=== PATIENT | female | born 1970 | race African-American/Black ===

== ENCOUNTER → 2016-10-09 | Outpatient (CLI) | payer OTHER | END | disposition home or self-care (01) | LOC: RAD 09:38 | PROVIDERS: ATTEND Family Medicine | DX: R07.9 Chest pain, unspecified (principal) | CPT/HCPCS: 71020 ==

== ENCOUNTER → 2017-02-19 | Outpatient (CLI) | payer SELFPAY ==
[~2017-02-19] MED LIST: REGADENOSON 0.4 MG/5 ML SYRINGE ONE
== END | disposition home or self-care (01) ==
LOC: CFH 10:28
PROVIDERS: ATTEND Internal Medicine Cardiovascular Disease
DX: Z02.9 Encounter for administrative examinations, unspecified (principal)
CPT/HCPCS: J2785

== ENCOUNTER 2017-05-11 07:32 | Day surgery (SDC) | payer OTHER ==
[~2017-05-11] VITALS: Ht 175.3 cm; Wt 80.0 kg
[2017-05-11 08:40] VITALS: BP 113/82
[2017-05-11] MEDS ORDERED: SODIUM CHLORIDE 0.9% 1,000 ML IV ONE (09:00)
[2017-05-11] MEDS ORDERED: ASPIRIN 325 MG TABLET EC PO ONE (09:00)
[2017-05-11] MEDS ORDERED: ASPI-621 PO (09:01)
[2017-05-11] MEDS ORDERED: TRIA1CAP3 PO (09:01)
[2017-05-11] MEDS ORDERED: LISI5TAB7 PO (09:01)
[2017-05-11] MEDS ORDERED: Fish oil PO (09:03)
[2017-05-11] MEDS ORDERED: Magnesium PO (09:03)
[2017-05-11] MEDS ORDERED: Vitamin D PO (09:03)
[2017-05-11] MEDS ORDERED: Tumeric PO (09:03)
[2017-05-11] MEDS ORDERED: NITR0.4T28 SL (09:16)
[2017-05-11 09:18] LABS: ALANINE AMINOTRANSFERASE 23 U/L (12-78); ALBUMIN 3.8 g/dL (3.4-5.0); ANION GAP 8 mmol/L (5-15); BASOPHILS # (AUTO) 0.04 x10^3/uL (0-0.1); BASOPHILS % (AUTO) 1 % (0-1); CALCIUM 8.3 mg/dL (8.5-10.1); CHLORIDE 103 mmol/L (98-107); CREATININE 0.89 mg/dL (0.55-1.02); EOSINOPHILS # (AUTO) 0.15 x10^3/uL (0-0.4); EOSINOPHILS % (AUTO) 2 % (1-7); LYMPHOCYTES # (AUTO) 1.39 x10^3/uL (1-3.4); LYMPHOCYTES % (AUTO) 21 % (22-44); MD NO; MEAN CORPUSCULAR VOLUME 88.2 fL (80-100); MEAN PLATELET VOLUME 7.3 fL (7.4-10.4); MONOCYTES # (AUTO) 0.35 x10^3/uL (0.2-0.8); MONOCYTES % (AUTO) 5 % (2-9); NEUTROPHILS % (AUTO) 71 % (42-75); PLATELET COUNT 339 x10^3/uL (130-400); RED BLOOD COUNT 4.35 x10^6/uL (3.82-5.3); RED CELL DISTRIBUTION WIDTH 13.1 % (9.6-15.2)
[2017-05-11 09:23] LABS: ALKALINE PHOSPHATASE 46 U/L (45-117); BILIRUBIN,TOTAL 0.4 mg/dL (0.2-1.0); TOTAL PROTEIN 7.9 g/dL (6.4-8.2)
[2017-05-11] MEDS ORDERED: MIDAZOLAM 1 MG/ML, 5ML ONE (10:08)
[2017-05-11] MEDS ORDERED: NITROGLYCERIN 5 MG/ML, 10ML ONE (10:08)
[2017-05-11] MEDS ORDERED: VERAPAMIL 2.5 MG/ML, 2ML ONE (10:08)
[2017-05-11] MEDS ORDERED: TICAGRELOR 90 MG TABLET ONE (10:08)
[2017-05-11] MEDS ORDERED: FENTANYL PF 100 MCG/2ML ONE (10:08)
[2017-05-11] MEDS ORDERED: BIVALIRUDIN 250 MG ONE (10:09)
[2017-05-11] MEDS ORDERED: HEPARIN 1,000 UNITS/ML, 10ML ONE (10:09)
[2017-05-11] MEDS ORDERED: LIDOCAINE-MPF 2% ,5ML ONE (10:09)
[2017-05-11] MEDS ORDERED: DIPHENHYDRAMINE 50 MG/ML, 1ML ONE (10:17)
[2017-05-11] MEDS ORDERED: SODIUM CHLORIDE 0.9% 1,000 ML IV SCH (12:00)
[2017-05-11] MEDS ORDERED: ONDANSETRON 2MG/ML, 2ML ONE (15:48)
[2017-05-11] MEDS ORDERED: ONDANSETRON 2MG/ML, 2ML IVPush ONE (16:00)
== END 2017-05-11 16:42 ==
LOC: CACL 07:32
PROVIDERS: ATTEND Internal Medicine Cardiovascular Disease
DX: I25.10 Atherosclerotic heart disease of native coronary artery without angina pectoris (principal); M32.9 Systemic lupus erythematosus, unspecified; I10 Essential (primary) hypertension; Z79.82 Long term (current) use of aspirin
CPT/HCPCS: 36415; 80053; 84703; 85025; 93458; 99156; 99157; C1760; C1769; C1894; J1200; J1644; J2250; J2405; J3010; J3490; J7030; Q9967; J0583

== ENCOUNTER 2017-07-26 18:51 | Emergency (ER) | payer OTHER ==
[~2017-07-26] VITALS: Ht 175.3 cm; Wt 79.5 kg
[~2017-07-26 18:51] MED LIST changes: +ASPI-621 PO; +Fish oil PO; +LISI5TAB7 PO; +Magnesium PO; +NITR0.4T28 SL; -REGADENOSON 0.4 MG/5 ML SYRINGE ONE; +TRIA1CAP3 PO; +Tumeric PO; +Vitamin D PO
[2017-07-26 19:41] LABS: MEAN CORPUSCULAR HEMOGLOBIN 29.4 pg (27.0-34.8); MEAN CORPUSCULAR HGB CONC 33.3 g/dL (32.4-35.8); MEAN CORPUSCULAR VOLUME 88.3 fL (80-100); MEAN PLATELET VOLUME 7.3 fL (7.4-10.4); PLATELET COUNT 324 x10^3/uL (130-400); RED BLOOD COUNT 4.36 x10^6/uL (3.82-5.3); RED CELL DISTRIBUTION WIDTH 13.2 % (9.6-15.2)
[2017-07-26 19:42] LABS: BASOPHILS # (AUTO) 0.02 x10^3/uL (0-0.1); BASOPHILS % (AUTO) 0 % (0-1); EOSINOPHILS # (AUTO) 0.21 x10^3/uL (0-0.4); EOSINOPHILS % (AUTO) 3 % (1-7); LYMPHOCYTES # (AUTO) 2.27 x10^3/uL (1-3.4); LYMPHOCYTES % (AUTO) 34 % (22-44); MD NO; MONOCYTES # (AUTO) 0.35 x10^3/uL (0.2-0.8); MONOCYTES % (AUTO) 5 % (2-9); NEUTROPHILS # (AUTO) 3.82 x10^3/uL (1.8-6.8); NEUTROPHILS % (AUTO) 57 % (42-75)
[2017-07-26 19:50] LABS: ALANINE AMINOTRANSFERASE 27 U/L (12-78); ANION GAP 5 mmol/L (5-15); CALCIUM 8.3 mg/dL (8.5-10.1); CHLORIDE 104 mmol/L (98-107); CREATININE 0.88 mg/dL (0.55-1.02)
[2017-07-26 19:55] VITALS: BP 128/79
[2017-07-26 19:55] LABS: ALKALINE PHOSPHATASE 45 U/L (45-117); BILIRUBIN,TOTAL 0.5 mg/dL (0.2-1.0); TOTAL PROTEIN 7.8 g/dL (6.4-8.2); TROPONIN I < 0.015 ng/mL (0.000-0.045)
[2017-07-26] MEDS ORDERED: IBUPROFEN 200 MG TABLET ONE (20:17)
[2017-07-26] MEDS ORDERED: IBUPROFEN 200 MG TABLET PO ONE (20:30)
== END 2017-07-26 20:26 | disposition home or self-care (01) ==
LOC: ED 20:20
DX: R07.89 Other chest pain (principal); R00.2 Palpitations; I10 Essential (primary) hypertension
CPT/HCPCS: 36415; 71045; 80053; 84484; 85025; 93005; 99285

== ENCOUNTER → 2017-11-16 | Outpatient (CLI) | payer OTHER | END | disposition home or self-care (01) | LOC: CFH 12:56 | PROVIDERS: ATTEND Internal Medicine Critical Care Medicine | DX: R06.02 Shortness of breath (principal) | CPT/HCPCS: 71046 ==